=== PATIENT | male | born 1990 | race Asian ===

== ENCOUNTER 2020-12-25 08:42 | Day surgery (SDC) | payer BC ==
[2020-12-25] MEDS ORDERED: Ringers Lactate 1,000 ML IV ONE (09:03)
[2020-12-25] MEDS ORDERED: CEFAZOLIN/SWI 1gm 1 GM/10 ML SYR ONE (09:04)
[2020-12-25 09:06] LABS: Absolute Lymphocytes (CBC) 2.8 K/uL (0.7-4.9); Basophils % 0.1 % (0-1.3); MPV 9.3 fL (7.6-11.3); RBC Red Blood Cell Count 5.26 M/uL (4.33-5.43)
--- OUTSIDE RECORDS SUMMARY | 2020-12-25 09:19 | XMS REPORT | Continuity of Care Document ---
:1990 Author Organization [facility] Information [place] Care Team Providers Name Role Phone [facility] Information Exchange Unavailable Un available Problems Problem Status Onset Classification Date Comments Sourc e Date Reported Simple Active Problem 04/24/2018 [facility] (disorder) Medications Medication Details Route Status Patient Ordering Order Source Instructions Provider Date Sulfamethoxazole 1 tab, PO, No 800 MG / BID, X 10 Longer 018 Medical Trimethoprim 160 MG day, # 20 Active Gr oup Oral Tablet tab, 0 [Bactrim] Refill(s) Allergies, Adverse Reactions, Alerts No Known Medication Allergies Immunizations No Data Provided for This Section Results No Data Provided for This Section Pathology Reports No Data Provided for This Section Diagnostic Reports No Data Provided for This Section Consultation Notes No Data Provided for This Section Discharge Summaries No Data Provided for This Section History and Physicals No Data Provided for This Section Vital Signs Vital Sign Value Date Comments Source Height 170.18 cm 01/16/2018 [facility] Weight 94.545 01/16/2018 [facility] Temperature Oral (F) 98.4 F 01/16/2018 [facility] Heart Rate 63 01/16/2018 [facility] Systolic (mm Hg) 133 01/16/2018 [facility] Diastolic (mm Hg) 77 01/16/2018 [facility] BMI Calculated 32.65 01/16/2018 [facility] o[facility] Encounters Location Location Encounter Encounter Reason Attending ADM [place] Stat Source Details Type Number For Provider Date Date Visit Outpatient [id number] IAN 07/17 [facility] Out[facility] [id number] YULIANA MELGAR [facility]18 [facility] [id number] YULIANA MELGAR [facility] [id number] YULIANA MELGAR 09/25 [facility] [id number] YULIANA MELGAR 10/08 [facility] [id number] VAN 01/16 [facility] [place] [facility] Outpatient [id number] Pedro Melgar 01/16 01/17 Primary /2017 [facility] Procedures Procedure Code Date Perfomer Comments Source [place] [id number] 09/25/2017 [facility] Assessment and Plan No Data Provided for This Section Plan of Care No Data Provided for This Section Social History Social History Date Source Social History TypeResponse 09/18/2017 [facility] Substance Abuse Use: None. Alcohol Never Smoking Status Current every day smoker; Exposure to To bacco Smoke self; Cigarette Smoking Last 365 Days Yes; Reg Smoking Cessation Counseling Yes entered on: 01/16/18 Family History No Data Provided for This Section Advance Directives No Data Provided for This Section Functional Status No Data Provided for This Section
[2020-12-25] MEDS ORDERED: dexAMETHasone 10 MG/ML VIAL ONE (10:33)
[2020-12-25] MEDS ORDERED: propofoL 200 MG/20 ML VIAL IV ONE (10:33)
[2020-12-25] MEDS ORDERED: FENTANYL CITR 100 MCG/2 ML ONE (10:33)
[2020-12-25] MEDS ORDERED: KETOROLAC 30 MG/ML INJ ONE (10:33)
[2020-12-25] MEDS ORDERED: MIDAZOLAM HCL 2 MG/2 ML INJ ONE (10:33)
[2020-12-25] MEDS ORDERED: LIDOCAINE 2% MPF 5 ML VIAL ONE (10:34)
[2020-12-25] MEDS ORDERED: ONDANSETRON 4 MG/2 ML VIAL ONE (10:35)
[2020-12-25] MEDS ORDERED: HYDROMORPHONE HCL 1 MG/ML INJ ONE (11:50)
[2020-12-25] MEDS ORDERED: NS 0.9% VIAL 10 ML ONE (11:53)
--- NOTE | 2020-12-25 12:18 | OP ---
Surgeon: Chaz Villatoro MD Preoperative Diagnosis: Hidradenitis suppurativa of the left scrotum. Postoperative Diagnosis: Hidradenitis suppurativa of the left scrotum. Procedure: Excision of hidradenitis suppurativa. Anesthesia: General. Procedure In Detail: After satisfactory induction of general anesthesia. The scrotum, penis and per ineum were prepped with Betadine scrub and paint. Dry sterile drapes were applied in the usual clarence r. Elliptical incision made over the abscess as was previously ruptured. There was blood clot prese nt as well as necrotic tissue, these were excised. Electrocautery used for hemostasis. The wounds t hen jet lavage irrigated with 3 L of dilute Betadine solution. Cultures were taken prior to irrigati on and the wound packed with Betadine-soaked, 2 inch Huey and 4 x 4 tape. The patient tolerated the procedure well and returned to Recovery. LESTER/DANNI Voice ID: [id number] Report ID: [id number]
[2020-12-25 12:39] VITALS: BP 106/92; TEMP 97.7; O2SAT 99
[2020-12-25] MEDS ORDERED: CODEINE 30MG/APAP 300MG TAB ONE (13:01)
== END 2020-12-25 13:21 | disposition home or self-care (01) ==
LOC: OR 08:42
PROVIDERS: ATTEND Specialist
PROC: 0JBB0ZZ Excision of Perineum Subcutaneous Tissue and Fascia, Open Approach (ICD-10-PCS; 2020-12-25)
PROC: 0VB50ZZ Excision of Scrotum, Open Approach (ICD-10-PCS; principal; 2020-12-25 09:00)
DX: L73.2 Hidradenitis suppurativa (principal); I96 Gangrene, not elsewhere classified
CPT/HCPCS: 11470; 87070; 85025; 36415; 87205; 88304; 87075; U0002; J2704; J2250; J3010; J1100; J1170; J0690; J7120; J2405